=== PATIENT | male | born 1980 | race Caucasian/White ===

== ENCOUNTER 2024-07-21 13:56 | Emergency (ER) | payer OTHER, SELFPAY ==
--- NOTE | ~2024-07-21 | XR_ITS ---
EXAMINATION: XR hand LT min 3V DATE: 07/21/2024 14:15 INDICATION: Left hand injury. TECHNIQUE: 3 views of left hand were obtained. COMPARISON: None. FINDINGS: Bone alignment is normal. No fracture. 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 IMPRESSION: 1. No fracture. Reviewed, dictated and finalized at location A. IMPRESSION: 1. No fracture.
[2024-07-21 13:59] VITALS: BP 140/94; PULSE 104; RESP 18; TEMP 36.8; O2SAT 95
--- NOTE | 2024-07-21 14:22 | ED.UPPEXIN ---
HPI - Extremity Injury (Upper) General Chief Complaint: Extremity Injury, Upper Stated Complaint: left hand injury Time Seen by Provider: 07/21/24 14:05 Source: patient Mode of arrival: ambulatory Limitations: no limitations History of Present Illness HPI narrative: Patient is a 43-year-old male who presents the ED with report of left hand pain injury. Patient reports he punched a refrigerator 2 weeks ago with his left hand. Sustained a laceration between his 3rd and 4th digit webspace. He states he does not have any significant pain or swelling initially after the injury, but his hand began swelling again on Thursday. He then began noticing some pus-like drainage from the laceration she today. Denies any fevers. Tetanus unknown. Related Data Allergies Allergy/AdvReac Type Severity Reaction Status Date / Time No Known Allergies Allergy Verified 06/08/19 09:35 Review of Systems Review of Systems: All systems reviewed & are unremarkable except as noted in HPI. All systems reviewed & are unremarkable except as noted in HPI and below Exam Narrative: GENERAL: Well appearing, Obese with BMI of 35.7, non-toxic, in no acute distress. HEAD: Normocephalic, atraumatic. RESPIRATORY: Airway patent, respirations nonlabored. CARDIOVASCULAR: Regular rate and rhythm . Radial pulses Intact. MUSCULOSKELETAL: Moves all extremities. No gross deformities. Full range of motion of left hand and fingers. Capillary refill intact throughout all fingers. Sensation intact. Mild swelling to dorsal left hand. healing 1.5 laceration between webspace of 3rd and 4th digit extending to dorsal hand, parallel to metacarpals. Minimal amount of purulent and serous drainage. no bleeding. No significant surrounding erythema or warmth. No fluctuance. Minimal focal tenderness to palpation surrounding laceration. SKIN: Warm, dry, normal color. NEURO: A&O X3. Speech clear. PSYCHIATRIC: Appropriate mood and affect. Normal interaction. Course Vital Signs Vital signs: Vital Signs Temperature 98.3 F 07/21/24 13:59 Pulse Rate 104 H 07/21/24 13:59 Respiratory Rate 18 07/21/24 13:59 Blood Pressure 140/94 H 07/21/24 13:59 Pulse Oximetry 95 07/21/24 13:59 Temperature 98.3 F 07/21/24 13:59 Pulse Rate 104 H 07/21/24 13:59 Respiratory Rate 18 07/21/24 13:59 Blood Pressure 140/94 H 07/21/24 13:59 Pulse Oximetry 95 07/21/24 13:59 MDM - Extremity Injury (Upper) MDM Narrative Medical decision making narrative: Patient presented to ED 2 weeks status post hand injury, now with purulent drainage from laceration. X-ray without evidence of fracture. Exam consistent with cellulitis. Given prolonged nature of patient's presentation, wound will have to heal by secondary intention. It does appear to be healing already. Will place on doxycycline for cellulitis. Advised patient to utilize warm compresses, monitor closely for signs of worsening. Given return precautions. He agrees with plan. Discharged in stable condition. Tetanus was updated in the ED. Medical Records Attestation: I reviewed the patient's medical records. Imaging Data Attestation: I personally reviewed and interpreted this imaging study as follows: Radiologist's impression: ITS Impressions Hand X-Ray 07/21/24 14:15 IMPRESSION: 1. No fracture. Discharge Plan Discharge Clinical Impression: Injury of left hand Qualifiers: Encounter type: sequela Qualified Code(s): S69.92XS - Unspecified injury of left wrist, hand and finger(s), sequela Laceration of left hand with infection Qualifiers: Encounter type: sequela Qualified Code(s): S61.412S - Laceration without foreign body of left hand, sequela Patient Disposition: Home, Self-Care Condition: Stable Instructions: Antibiotic Form, Laceration (ED), Cellulitis (ED) Additional Instructions: Take antibiotics as prescribed. Recommend frequent warm compresses to
[2024-07-21] MEDS: DOXYCYCLINE HYCLATE 100 MG TABLET PO (14:54)
[2024-07-21] MEDS: TETANUS,DIPHTHERIA,AC PERTUSSIS ADULT (0.5 ML) BOOSTRIX IM (14:55)
== END 2024-07-21 15:02 | disposition home or self-care (01) ==
PROVIDERS: Emergency Provider Physician Assistant; PCP Internal Medicine
DX: S61.412A Laceration without foreign body of left hand, initial encounter (principal); Z23 Encounter for immunization; W22.8XXA Striking against or struck by other objects, initial encounter
CPT/HCPCS: 73130; 90471; 90715; 99283; A9270